=== PATIENT | female | born 1965 | race Two or more races ===

== ENCOUNTER 2025-09-21 09:29 | Inpatient (IN) | payer MEDICARE, OTHER ==
[~2025-09-21] VITALS: Ht 165.1 cm; Wt 103.0 kg
[2025-09-21 10:00] VITALS: BP 142/92; TEMP 97.7; O2SAT 94
[2025-09-21] MEDS ORDERED: LIDOCAINE 2%-EPI 1:100,000 30 ML VIAL ONE (11:29)
[2025-09-21] MEDS ORDERED: dexaMETHasone SOD PHOSPHATE 2 ML ONE (11:29)
[2025-09-21] MEDS ORDERED: VANCOMYCIN 1 GM VIAL ONE (11:29)
[2025-09-21] MEDS ORDERED: FENTANYL PF 100MCG/2ML AMPUL ONE (12:00)
[2025-09-21] MEDS ORDERED: MIDAZOLAM HCL 2 MG/2ML VIAL ONE (12:00)
[2025-09-21] MEDS ORDERED: LABETALOL HCL IV 100MG VIAL ONE (12:32)
[2025-09-21 15:00] VITALS: BP 130/76; TEMP 98.1; O2SAT 93
[2025-09-21] MEDS ORDERED: HYDROMORPHONE 1 MG/1 ML DISP.SYRIN IV PRN (15:00)
[2025-09-21] MEDS ORDERED: ONDANSETRON HCL/PF 4 MG/2 ML VIAL IV PRN (15:00)
[2025-09-21] MEDS ORDERED: HYDROCODONE/APAP 10/325MG TABLET PO PRN (16:00)
[2025-09-21] MEDS ORDERED: ACETAMINOPHEN 325 MG TABLET PO PRN (16:00)
[2025-09-21] MEDS ORDERED: Z GUARD REMEDY 4 OZ OINT TP PRN (16:00)
[2025-09-21] MEDS ORDERED: MAGNESIUM HYDROXIDE 30 ML UDC PO PRN (16:00)
[2025-09-21] MEDS ORDERED: ZOLPIDEM TARTRATE 5 MG TABLET PO PRN (16:00)
[2025-09-21] MEDS ORDERED: ONDANSETRON HCL/PF 4 MG/2 ML VIAL IVP PRN (16:00)
[2025-09-21] MEDS ORDERED: GABA-532 PO (17:01)
[2025-09-21] MEDS ORDERED: MELO-107 PO (17:01)
[2025-09-21] MEDS ORDERED: AZIL80TA PO (17:01)
[2025-09-21] MEDS ORDERED: ESCI10TA PO (17:01)
[2025-09-21] MEDS ORDERED: MECL-159 PO (17:01)
[2025-09-21] MEDS ORDERED: AMLO-212 PO (17:01)
[2025-09-21] MEDS ORDERED: CARV12.52 PO (17:01)
[2025-09-21] MEDS ORDERED: HYDR25TA4 PO (17:01)
[2025-09-21] MEDS ORDERED: ASPI-1420 PO (17:01)
[2025-09-21] MEDS: IV NS 0.9% 1,000 ML IV PRN (17:05)
[2025-09-21] MEDS: MENTHOL/CETYLPYRD (CEPACOL) 1 LOZ LOZENGE PO PRN (17:05)
[2025-09-21] MEDS ORDERED: GABAPENTIN 100 MG CAPSULE PO PRN (17:30)
[2025-09-21] MEDS ORDERED: MELOXICAM 7.5 MG TABLET PO PRN (17:30)
[2025-09-21] MEDS ORDERED: ESCITALOPRAM OXALATE (10 MG) 10 MG TABLET PO PRN (17:30)
[2025-09-21] MEDS ORDERED: MECLIZINE HCL 25 MG TABLET PO PRN (17:30)
[2025-09-21] MEDS: ASPIRIN EC 81 MG TABLET.DR PO SCH (18:23)
[2025-09-21] MEDS: MAG HYDROX/AL HYDROX/SIMETH 30 ML UDC PO PRN (19:54)
[2025-09-21 20:00] VITALS: BP 149/79; TEMP 97.9; O2SAT 95
[2025-09-21] MEDS: HYDROCHLOROTHIAZIDE 25 MG TABLET PO SCH (21:24)
[2025-09-21] MEDS: AMLODIPINE BESYLATE 5 MG TABLET PO SCH (21:24)
[2025-09-21] MEDS: ACETAMINOPHEN 325 MG TABLET PO PRN (21:25)
[2025-09-21] MEDS: VANCOMYCIN 1 GM in IV D5W 250ml IV SCH (23:45)
[2025-09-22 06:00] VITALS: BP 132/64; TEMP 98.1; O2SAT 94
[2025-09-22 08:00] VITALS: BP 136/80; TEMP 97.9; O2SAT 95
[2025-09-22] MEDS: CARVEDILOL 12.5 MG TABLET PO SCH (09:29)
[2025-09-22 09:30] VITALS: BP 136/80
[2025-09-22] MEDS: LOSARTAN POTASSIUM 50 MG TABLET PO SCH (09:30)
[2025-09-22 10:58] VITALS: TEMP 97.9
== END 2025-09-22 13:45 | disposition home or self-care (01) | DRG 141 ==
LOC: DS 09:29 → MED 09:30
PROVIDERS: ADMIT Nurse Practitioner Acute Care; ATTEND Nurse Practitioner Acute Care
PROC: 0NSR0ZZ Reposition Maxilla, Open Approach (ICD-10-PCS; 2025-09-21)
PROC: 09UQ07Z Supplement Right Maxillary Sinus with Autologous Tissue Substitute, Open Approach (ICD-10-PCS; 2025-09-21)
PROC: 0NBR0ZZ Excision of Maxilla, Open Approach (ICD-10-PCS; 2025-09-21)
PROC: 0N5T0ZZ Destruction of Right Mandible, Open Approach (ICD-10-PCS; 2025-09-21)
PROC: 0NUT07Z Supplement Right Mandible with Autologous Tissue Substitute, Open Approach (ICD-10-PCS; 2025-09-21)
PROC: 0NST04Z Reposition Right Mandible with Internal Fixation Device, Open Approach (ICD-10-PCS; 2025-09-21)
PROC: 09BQ0ZZ Excision of Right Maxillary Sinus, Open Approach (ICD-10-PCS; principal; 2025-09-21 13:00)
DX: S02.40DA Maxillary fracture, left side, initial encounter for closed fracture (principal); M87.9 Osteonecrosis, unspecified; D16.4 Benign neoplasm of bones of skull and face; S02.40CA Maxillary fracture, right side, initial encounter for closed fracture; I10 Essential (primary) hypertension; Z68.37 Body mass index [BMI] 37.0-37.9, adult; D16.5 Benign neoplasm of lower jaw bone; M27.2 Inflammatory conditions of jaws; Z79.82 Long term (current) use of aspirin; G62.9 Polyneuropathy, unspecified; E66.9 Obesity, unspecified; X58.XXXA Exposure to other specified factors, initial encounter; Y92.9 Unspecified place or not applicable; J32.9 Chronic sinusitis, unspecified
CPT/HCPCS: 88305-TC; 88311-TC; A4217; A4223; A4338; C1713; G0378; J1100; J1885; J2250; J2405; J2704; J2765; J3010; J3373; J3490; J7060